=== PATIENT | female | born 1945 | race Caucasian/White ===

== ENCOUNTER 2019-01-24 14:00 | Emergency (ER) | payer OTHER ==
[~2019-01-24] VITALS: Ht 160 cm; Wt 68.0 kg
== END 2019-01-24 16:30 | disposition home or self-care (01) ==
LOC: ER 14:00
DX: G44.209 Tension-type headache, unspecified, not intractable (principal)

== ENCOUNTER 2019-04-07 21:11 | Emergency (ER) | payer OTHER ==
[~2019-04-07] VITALS: Ht 157.5 cm; Wt 70.3 kg
[2019-04-07] MEDS ORDERED: VALACYCLOVIR500 MG (22:07)
[2019-04-07] MEDS ORDERED: SYNTHROID88 MCG (22:07)
[2019-04-07] MEDS ORDERED: FLUVOXAMINE MA100 M1 (22:08)
[2019-04-07] MEDS ORDERED: ELAVIL (22:08)
[2019-04-07] MEDS ORDERED: ITRACONAZOLE100 MG (22:10)
[2019-04-07] MEDS ORDERED: TRANXENE T-TAB7.5 MG (22:11)
== END 2019-04-08 00:35 | disposition left against medical advice (07) ==
LOC: ER 21:11
DX: Z53.20 Procedure and treatment not carried out because of patient's decision for unspecified reasons (principal)

== ENCOUNTER 2020-08-09 15:11 | Outpatient (CLI) | payer OTHER ==
[~2020-08-09 15:11] MED LIST: ELAVIL; FLUVOXAMINE MA100 M1; ITRACONAZOLE100 MG; SYNTHROID88 MCG; TRANXENE T-TAB7.5 MG; VALACYCLOVIR500 MG
== END 2020-08-09 17:32 | disposition home or self-care (01) ==
LOC: OFIC 805 15:11
PROVIDERS: ATTEND Otolaryngology Otology & Neurotology
DX: H91.8X3 Other specified hearing loss, bilateral (principal); H93.13 Tinnitus, bilateral; J31.0 Chronic rhinitis

== ENCOUNTER 2020-09-22 11:17 | Outpatient (CLI) | payer OTHER | END 2020-09-22 11:55 | disposition home or self-care (01) | LOC: OFIC 805 11:17 | PROVIDERS: ATTEND Otolaryngology Otology & Neurotology | DX: H93.13 Tinnitus, bilateral (principal); H90.3 Sensorineural hearing loss, bilateral ==

== ENCOUNTER 2020-12-03 15:16 | Emergency (ER) | payer OTHER ==
[~2020-12-03] VITALS: Ht 160 cm; Wt 68.0 kg
[2020-12-03] MEDS ORDERED: DICLOFENAC SODI75 MG PO (16:42)
== END 2020-12-03 18:35 | disposition home or self-care (01) ==
LOC: ER 15:16
DX: M54.2 Cervicalgia (principal)

== ENCOUNTER 2022-02-25 10:10 | Emergency (ER) | payer OTHER ==
[~2022-02-25] VITALS: Ht 160 cm; Wt 69.9 kg
[~2022-02-25 10:10] MED LIST changes: +DICLOFENAC SODI75 MG PO
[2022-02-25] MEDS ORDERED: KAPVAY0.1 MG (10:31)
[2022-02-25] MEDS ORDERED: BUSPIRONE HCL7.5 MG (10:31)
[2022-02-25] MEDS ORDERED: FLUVOXAMINE MA100 M1 (10:32)
[2022-02-25] MEDS ORDERED: SYNTHROID75 MCG (10:32)
== END 2022-02-25 12:24 | disposition home or self-care (01) ==
LOC: ER 10:10
DX: L30.9 Dermatitis, unspecified (principal); E03.9 Hypothyroidism, unspecified

== ENCOUNTER 2022-03-06 12:38 | Emergency (ER) | payer OTHER ==
[~2022-03-06] VITALS: Ht 162.6 cm; Wt 68.9 kg
[~2022-03-06 12:38] MED LIST changes: +BUSPIRONE HCL7.5 MG; +KAPVAY0.1 MG; +SYNTHROID75 MCG
== END 2022-03-06 17:13 | disposition home or self-care (01) ==
LOC: ER 12:38
DX: M25.561 Pain in right knee (principal); E03.9 Hypothyroidism, unspecified; F41.9 Anxiety disorder, unspecified

== ENCOUNTER 2023-04-30 11:01 | Emergency (ER) | payer OTHER ==
[~2023-04-30] VITALS: Ht 165.1 cm; Wt 72.6 kg
[2023-04-30] MEDS ORDERED: BETAMETHASONE D15 G3 TOP ×2 (14:44→14:47)
[2023-04-30] MEDS ORDERED: ZYRTEC10 MG PO (14:44)
[2023-04-30] MEDS ORDERED: CERAVE DAILY M355 ML TOP (14:44)
== END 2023-04-30 14:59 | disposition home or self-care (01) ==
LOC: ER 11:01
DX: L30.8 Other specified dermatitis (principal); E03.9 Hypothyroidism, unspecified; F41.8 Other specified anxiety disorders
CPT/HCPCS: 96372; 99284; J1100

== ENCOUNTER 2024-07-27 16:38 | Emergency (ER) | payer OTHER ==
[~2024-07-27] VITALS: Ht 160 cm; Wt 68.0 kg
[~2024-07-27 16:38] MED LIST changes: +BETAMETHASONE D15 G3 TOP; +CERAVE DAILY M355 ML TOP; +ZYRTEC10 MG PO
[2024-07-27] MEDS ORDERED: LIDOCAINE HCL 1% 10ML VIAL ONE (17:53)
[2024-07-27] MEDS ORDERED: CEFTRIAXONE SODIUM 1,000 MG VIAL IM STA (22:37)
[2024-07-27] MEDS ORDERED: CEFTRIAXONE SODIUM 1,000 MG VIAL ONE ×2 (22:43→22:45)
== END 2024-07-27 22:47 | disposition home or self-care (01) ==
LOC: ER 16:41
DX: S01.111A Laceration without foreign body of right eyelid and periocular area, initial encounter (principal); S60.221A Contusion of right hand, initial encounter; S80.01XA Contusion of right knee, initial encounter; W18.39XA Other fall on same level, initial encounter; Y93.89 Activity, other specified; Y92.488 Other paved roadways as the place of occurrence of the external cause; Y99.9 Unspecified external cause status

== ENCOUNTER 2024-08-03 09:51 | Emergency (ER) | payer OTHER ==
[~2024-08-03] VITALS: Ht 160 cm; Wt 68.0 kg
== END 2024-08-03 10:43 | disposition home or self-care (01) ==
LOC: ER 09:54
DX: Z48.02 Encounter for removal of sutures (principal); T14.90XD Injury, unspecified, subsequent encounter

== ENCOUNTER 2025-04-19 13:44 | Emergency (ER) | payer OTHER ==
[~2025-04-19] VITALS: Ht 162.6 cm; Wt 69.4 kg
[2025-04-19] MEDS ORDERED: KETOROLAC TROMETHAMINE 30 MG VIAL ONE (15:26)
[2025-04-19] MEDS ORDERED: ACETAMINOPHEN 500 MG GEL..CAP PO ONE ×2 (15:26→15:30)
[2025-04-19] MEDS ORDERED: ORPHENADRINE CITRATE 30 MG/ML AMPUL ONE (15:26)
[2025-04-19] MEDS ORDERED: DEXAMETHASONE SODIUM PHOSPHATE 4 MG/ML VIAL ONE (15:27)
[2025-04-19] MEDS ORDERED: ORPHENADRINE CITRATE 30 MG/ML AMPUL IM ONE (15:30)
[2025-04-19] MEDS ORDERED: DEXAMETHASONE SODIUM PHOSPHATE 4 MG/ML VIAL IM ONE (15:30)
[2025-04-19] MEDS ORDERED: KETOROLAC TROMETHAMINE 30 MG VIAL IM ONE (15:30)
[2025-04-19 17:29] LABS: BASO % 0.5 % (0.1-1.2); EOS # 0.15 (0.04-0.54); EOS % 2.0 % (0.7-7.0); LYMPH # 2.14 (1.18-3.74); LYMPH % 28.5 % (19.3-53.1); MEAN PLATELET VOLUME 10.40 fl (9.4-12.4); MONO # 0.96 (0.24-0.82); NEUT # 4.16 (1.56-6.13); NEUT % 55.3 % (34.0-71.1); RED CELL DISTRIBUTION WIDTH 12.0 % (11.6-14.4)
[2025-04-19 17:31] LABS: MONO % 12.8 % (4.7-12.5)
[2025-04-19 18:22] LABS: ALT/SGPT 18.0 U/L (12-78); AST/SGOT 15.0 U/L (15-37); BILIRUBIN TOTAL 0.29 mg/dL (0.3-1.2); BUN CREA RATIO 16.0 (7.0-25.0); CREATININE SERUM 1.16 mg/dL (0.55-1.02); GFR 44.84; GLOBULINA 3.5 G/DL (2.4-3.5); GLUCOSE FASTING 96.0 mg/dL (65-100); OSMOLALITY SERUM 282.0 MOSM/KG (275-295)
[2025-04-19] MEDS ORDERED: AMOX1TAB5 PO (19:17)
[2025-04-19] MEDS ORDERED: 8HR ARTHRITIS650 M1 PO (19:17)
[2025-04-19] MEDS ORDERED: PEPCID AC20 MG PO (19:17)
== END 2025-04-19 21:16 | disposition home or self-care (01) ==
LOC: ER 13:45
PROVIDERS: General Practice
DX: L03.116 Cellulitis of left lower limb (principal); E11.9 Type 2 diabetes mellitus without complications; E03.9 Hypothyroidism, unspecified
CPT/HCPCS: 36415; 73560; 96372; 99283; J1100; J1885; J2360